=== PATIENT | female | born 1935 | race Caucasian/White ===

== ENCOUNTER 2016-09-18 10:56 | Emergency (ER) | payer OTHER, MEDICARE ==
[2016-09-18 11:07] VITALS: BMI 21.7
--- NOTE | 2016-09-18 11:28 | PDOC ---
[id number] is an 81 year old female with a past medical history of hypertension, hypercholesterolemia, who was referred to our emergency department by PMD Dr. Valerie Herrera with a complaint of elevated blood pressure. Patient one month ago had taken herself off her blood pressure medication( ramipril 5mg) because she was feeling better. Patient 4 days ago was at her metal drawer and states her systolic blood pressure was 140 systolic and was feeling well. Patient yesterday however started to experience some dizziness/ lightheadedness. Patient assessed her own blood pressure at a [employer] BP machine and found to have systolic in the 170s. Later that evening athome, she assessed her blood pressure again and found her s blood pressure to be 200's systolic. Demond followed up with her primary this morning and was noted be 210 systolic, subseqently referred to our ED. Here in the emergency department at triage, patients blood pressure was measured to be 204/77. Patient continues to endorse dizziness and mild nausea. She denies vomiting. Deneis chest pain, palpitations, back pain or shortness of breath. Denies cough. Denies abdominal pain. Denies headache, blurry vision. Denies numbness or tingling. Patient denies fever, chills or illness. PMD:Dr. Valerie Herrera( [phone]) <Iban Payan - Last Filed: 09/18/16 16:27> <Bradley Sweet - Last Filed: 09/21/16 19:29> - General Chief Complaint: Blood Pressure Problem Stated Complaint: HIGH BLOOD PRESSURE, PCP SENT Time Seen by Provider: 09/18/16 11:12 Past History <Iban Payan - Last Filed: 09/18/16 16:27> - Past Medical History HTN: Yes - Immunization History Immunization Up to Date: Yes - Psycho/Social/Smoking Cessation Hx Anxiety: No Suicidal Ideation: No Smoking History: Former smoker Have you smoked in the past 12 months: No Information on smoking cessation initiated: No Hx Alcohol Use: No Drug/Substance Use Hx: No Substance Use Type: None <Bradley Sweet - Last Filed: 09/21/16 19:29> - Past Medical History Allergies/Adverse Reactions: Allergies Allergy/AdvReac Type Severity Reaction Status Date / Time No Known Allergies Allergy Verified 09/18/16 11:03 Home Medications: Ambulatory Orders Ramipril 5 mg PO DAILY 09/18/16 Ramipril 5 mg PO DAILY #30 capsule 09/18/16 Review of Systems - Review of Systems Comments:: 09/18/16 11:55 CONSTITUTIONAL: No reported: Fever, Chills, Diaphoresis, Generalized Weakness, Malaise, Loss of Appetite HEENT: No reported: Rhinorrhea, Nasal Congestion, Throat Pain, Throat Swelling, Difficulty Swallowing, Mouth Swelling, Ear Pain, Eye Pain, Visual Changes CARDIOVASCULAR: No reported: Chest Pain, Syncope, Palpitations, Irregular Heart Rate, Lightheadedness, Peripheral Edema RESPIRATORY: No reported: Cough, Shortness of Breath, SOB with Exertion, Orthopnea, Wheezing , Stridor, Hemoptysis GASTROINTESTINAL: Reported: Nausea No reported: Abdominal pain, Abdominal Distension, Vomiting, Diarrhea, Constipation, Melena, Hematochezia GENITOURINARY: No reported: Dysuria, Frequency, Urgency, Hesitancy, Flank Pain, Genital Pain MUSCULOSKELETAL: No reported: Myalgia, Arthralgia, Joint Swelling, Back pain, Neck Pain SKIN: No reported: Rash, Itching, Pallor HEMEATOLOGIC/IMMUNOLOGIC: No reported: Easy Bleeding, Easy Bruising, Lymphadenopathy, Frequent infections ENDOCRINE: No reported: Unexplained Weight Gain, Unexplained Weight Loss, Heat Intolerance , Cold Intolerance NEUROLOGIC: Reports: Dizziness No reported: Headache, Focal Weakness, Paresthesias, Vertigo, Unsteady Gait, Seizure, Mental Status Changes, Incontinence PSYCHIATRIC: No reported: Anxiety, Depression <PayanIban - Last Filed: 09/18/16 16:27> *Physical Exam - Vital Signs Last Vital Signs Temp Pulse Resp BP Pulse Ox 98.3 F 54 L 20 204/77 98 09/18/16 11:29 09/18/16 11:03 09/18/16 11:29 09/18/16 11:03 09/18/16 11:29 - Physical Exam Comments: 09/18/16 11:55 GENERAL: The patient is awake, alert, and fully oriented, Nontoxic - in no acute distress. HEAD: Normocephalic, atraumatic. EYES: extraocular movements intact, sclera anicteric, conjunctiva clear. ENT: Normal voice, Moist mucous membranes. NECK: Normal range of motion, supple LUNGS: Breath sounds equal, clear to auscultation bilaterally. No wheezes, no rhonchi, no rales. HEART: Regular rate and rhythm, without murmur, rub or gallop. ABDOMEN: Soft, nontender, normoactive bowel sounds. No guarding, no rebound.No CVA tenderness EXTREMITIES: Normal range of motion, no edema. No clubbing or cyanosis. No cords , erythema, or tenderness. NEURO: Mental status: The patient is oriented x3. Cranial nerves: Cranial nerves II through XII are intact Motor: The upper extremities are 5 over 5 in all muscle groups. The lower extremities are 5 over 5 in all muscle groups. No pronator drift. Sensation: Sensation is intact to light touch throughout. Neg romberg Cerebellar: Homohz-wycetm-smps is normal in both upper extremities. Heel-knee- peterson is normal in both lower extremities. Reflexes: 2+ and symmetric in the upper and lower extremities. Gait: Normal. Heel and toe walking are normal. Tandem gait is normal. PSYCH: Normal mood, normal affect. SKIN: Warm, Dry, normal turgor, <Iban Payan - Last Filed: 09/18/16 16:27> - Vital Signs Last Vital Signs Temp Pulse Resp BP Pulse Ox 97.6 F 54 L 16 204/77 99 09/18/16 11:03 09/18/16 11:03 09/18/16 11:03 09/18/16 11:03 09/18/16 11:03 <Bradley Sweet - Last Filed: 09/21/16 19:29> Heart Score/ECG Review - ECG Impressions Comment:: 09/18/16 12:31 Twelve-lead EKG was performed and reviewed by me. There is normal sinus rhythm with a rate of 49 The axis is normal. The intervals are normal. There is normal R wave progression There are no ST or T wave abnormalities. Impression: Sinus bradycardia <Bradley Sweet - Last Filed: 09/21/16 19:29> ED Treatment Course - LABORATORY CBC & Chemistry Diagram: 09/18/16 11:33 09/18/16 13:25 - Medications Given in the ED: ED Medications Discontinued Medications Generic Name Dose Route Start Last Admin Trade Name Freq PRN Reason Stop Dose Admin Labetalol HCl 10 mg 09/18/16 11:31 09/18/16 11:35 Normodyne Injection - IVPUSH 09/18/16 11:32 10 mg ONCE ONE Administration <Iban Payan - Last Filed: 09/18/16 16:27> - LABORATORY CBC & Chemistry Diagram: 09/18/16 11:33 09/18/16 13:25 <Bradley Sweet - Last Filed: 09/21/16 19:29> Medical Decision Making - Medical Decision Making 09/18/16 11:41 81y F hx of htn, hl, presents with htn, pt states that she felt alittle nauseus and lightheaded this morning, and went ot her pmd and noted her BP was elevated to 210 systolic after being off her meds for the past month. pt currently asymptomatic. exam including neuro exam is unremarakble will ck basic labs to r/o anemia, metabolic dernagement, occult infection ekg to screen for arrythmia will give pt 10mg labetalol and will confirm her bp meds and restart her on the meds. A portion of this note was documented by scribe services under my direction. I have reviewed the details of the note, within reason, and agree with the documentation with the following case summary and management plan written by me 09/18/16 15:40 labs unremarkable pts bp improved will dc the patient with pmd fu will have pt continue taking her ramapril will have pt fu with dr herrera tomorrow. I discussed the physical exam findings, ancillary test results and final diagnoses with the patient. I answered all of the patient's questions. The patient was satisfied with the care received and felt comfortable with the discharge plan and treatment plan. The patient will call their primary care physician within 24 hours to arrange follow-up and will return to the Emergency Department with any new, persistent or worsening symptoms. <Bradley Sweet - Last Filed: 09/21/16 19:29> *DC/Admit/Observation/Transfer - Attestations Scribe Attestion: 09/18/16 11:55 Documentation prepared by Iban Payan, acting as manager medical affairs for Bradley Sweet MD <Iban Payan - Last Filed: 09/18/16 16:27> - Discharge Dispostion Admit: No <Bradley Sweet - Last Filed: 09/21/16 19:29> Diagnosis at time of Disposition: Hypertension Qualifiers: Hypertension type: essential hypertension Qualified Code(s): I10 - Essential ( primary) hypertension - Discharge Dispostion Disposition: HOME Condition at time of disposition: Improved - Prescriptions Prescriptions: Ramipril 5 mg PO DAILY #30 capsule - Referrals Referrals: Valerie Herrera MD [Primary Care Provider] - - Patient Instructions Printed Discharge Instructions: DI for High Blood Pressure Additional Instructions: Return to the emergency department immediately with ANY new, persistent or worsening symptoms. Continue taking your Ramapril as prescribed You MUST call and follow up with your doctor tomorrow for further evaluation of your symptoms. Results were discussed with you. Please make sure your doctor reviews the results of your emergency evaluation.
[2016-09-18 11:31] VITALS: TEMP 98.3
[2016-09-18] MEDS ORDERED: LABETALOL HCL 5 MG/1 ML (100MG/20 ML VIAL) IVPUSH ONE (11:31)
[2016-09-18] MEDS ORDERED: LABETALOL HCL 5 MG/1 ML (200MG/40ML VIAL) IVPB ONE (11:37)
[2016-09-18 11:47] LABS: BASOPHIL 1.6 % (0-2.0); EOSINOPHIL 1.6 % (0-4.5); MCH 29.9 pg (25.7-33.7); MCHC 33.4 g/dl (32.0-36.0); MEAN CELL VOLUME 89.5 fl (80-96); MEAN PLT VOLUME 9.7 fl (7.5-11.1); NEUTROPHILS 49.8 % (42.8-82.8); PLATELET COUNT 270 K/MM3 (134-434); RDW 13.1 % (11.6-15.6); WHITE BLOOD COUNT 7.5 K/mm3 (4.0-10.0)
[2016-09-18 12:16] LABS: URINE APPEARANCE CLEAR; URINE BILIRUBIN NEGATIVE (NEGATIVE); URINE BLOOD NEGATIVE (NEGATIVE); URINE COLOR COLORLESS; URINE GLUCOSE (UA) NEGATIVE (NEGATIVE); URINE KETONE NEGATIVE (NEGATIVE); URINE LEUK ESTERASE NEGATIVE (NEGATIVE); URINE NITRITE NEGATIVE (NEGATIVE); URINE PROTEIN NEGATIVE (NEGATIVE); URINE UROBILINOGEN NEGATIVE E.U./dl (0.2-1.0)
[2016-09-18 12:19] LABS: INR 0.98 (0.82-1.09); PROTHROMBIN TIME (PATIENT) 10.8 SEC (9.98-11.88)
[2016-09-18 13:42] LABS: ANION GAP 12 (8-16); CALCIUM 9.1 mg/dL (8.5-10.1); CO2 23 mmol/L (21-32); CREATININE 0.7 mg/dL (0.55-1.02); GLUCOSE,RANDOM 104 mg/dL (74-106); SGOT/AST 17 U/L (15-37); SGPT/ALT 22 U/L (12-78)
[2016-09-18 13:44] LABS: ALK PHOS 69 U/L (45-117); BILIRUBIN,TOTAL 0.6 mg/dL (0.2-1.0)
[2016-09-18 15:44] LABS: TROPONIN I < 0.02 ng/ml (0.00-0.05)
[2016-09-18 16:25] VITALS: BP 166/78; PULSE 59
--- NOTE | 2016-09-19 13:57 | EKG ---
Test Reason : Blood Pressure : / mmHG Vent. Rate : 049 BPM Atrial Rate : 049 BPM P-R Int : 156 ms QRS Dur : 078 ms QT Int : 444 ms P-R-T Axes : 070 -05 042 degrees QTc Int : 401 ms SINUS BRADYCARDIA OTHERWISE NORMAL ECG NO PREVIOUS ECGS AVAILABLE Confirmed by AVELINO JAMES, MARANDA ([id number]) on 09/19/2016 1:56:46 PM Referred By: Confirmed By:MARANDA YOU MD
== END 2016-09-18 16:24 | disposition home or self-care (01) ==
LOC: JER 10:56
DX: I10 Essential (primary) hypertension (principal); Z91.14 Patient's other noncompliance with medication regimen
CPT/HCPCS: 36415; 80053; 81003; 82550; 84484; 85025; 85610; 93005; 93010; 99283-25

== ENCOUNTER 2017-02-10 12:11 | Emergency (ER) | payer OTHER, MEDICARE ==
[2017-02-10 12:18] VITALS: TEMP 99.3; BMI 22.6
--- NOTE | 2017-02-10 13:10 | PDOC ---
History of Present Illness - General Chief Complaint: Blood Pressure Problem Stated Complaint: BP PROBLEM Time Seen by Provider: 02/10/17 12:30 History Source: Patient Exam Limitations: No Limitations - History of Present Illness Initial Comments: 02/10/17 13:24 81y F hx of htn, hl, who presents for evaluation of hypertension. Pt stats that last night, she was feeling a little lightheaded and had a mild headache last night approx 6pm. she checked her BP and it was 180. She took a ramapril 10mg, at midnight she checked her BP again and SBP was 200s. she took another ramapril 10mg. This morning her BP was 180s and she took another ramapril. PT states she feels better currently, denies any headache, dizzines,s n/v, palpitations, cp, sob, diaphoresis, abd pain, back pain, numnes/tingling/ weakness. no recent travel PMD:L Dr villatoro pt denies recreational drug use Past History - Past Medical History Allergies/Adverse Reactions: Allergies Allergy/AdvReac Type Severity Reaction Status Date / Time No Known Allergies Allergy Verified 02/10/17 12:18 Home Medications: Ambulatory Orders Ramipril 10 mg PO DAILY 02/10/17 Rosuvastatin Calcium 10 mg PO DAILY 02/10/17 HTN: Yes Hypercholesterolemia: Yes - Immunization History Immunization Up to Date: Yes - Psycho/Social/Smoking Cessation Hx Anxiety: No Suicidal Ideation: No Smoking History: Never smoked Have you smoked in the past 12 months: No Information on smoking cessation initiated: No Hx Alcohol Use: No Drug/Substance Use Hx: No Substance Use Type: None Review of Systems - Review of Systems Able to Perform ROS?: Yes Comments:: 02/10/17 14:25 Constitutional - no reported Fever, Chills, HEENT: no reported vision changes, sore throat Respiratory: no reported cough, sob, hemoptysis Cardiac: no reported chest pain, palpitations, light headedness, leg swelling Abd/GI: no reported abd pain, nausea, vomiting, blood per rectum, melena, diarrhea : no reported dysuria, frequency, discharge Musculskelatal - no reported back pain, joint swelling skin - no reported bruising, erythema, rash neurological: +dizziness, head pressure no reported headache, numbness, focal weakness, tingling, ataxia, hematologic: no reported anemia, easy bruising, easy bleeding *Physical Exam - Vital Signs Last Vital Signs Temp Pulse Resp BP Pulse Ox 99.3 F 74 18 159/77 98 02/10/17 12:13 02/10/17 12:13 02/10/17 12:13 02/10/17 12:13 02/10/17 12:13 - Physical Exam Comments: 02/10/17 14:26 GENERAL: The patient is awake, alert, and fully oriented, Nontoxic - in no acute distress. HEAD: Normocephalic, atraumatic. EYES: extraocular movements intact, sclera anicteric, conjunctiva clear. ENT: Normal voice, Moist mucous membranes. NECK: Normal range of motion, supple LUNGS: Breath sounds equal, clear to auscultation bilaterally. No wheezes, no rhonchi, no rales. HEART: Regular rate and rhythm, normal S1 and S2 without murmur, rub or gallop. ABDOMEN: Soft, nontender, normoactive bowel sounds. No guarding, no rebound. . No CVA tenderness EXTREMITIES: Normal range of motion, no edema. No clubbing or cyanosis. No cords, erythema, or tenderness. NEUROLOGICAL: No facial assymetry, Normal speech, PSYCH: Normal mood, normal affect. SKIN: Warm, Dry, normal turgor, Heart Score/ECG Review - ECG Impressions Comment:: 02/10/17 14:31 Twelve-lead EKG was performed and reviewed by me. There is normal sinus rhythm with a rate of 49 The axis is normal. The intervals are normal. There is normal R wave progression There are no ST or T wave abnormalities. Impression: Sinus bradycardia ED Treatment Course - LABORATORY CBC & Chemistry Diagram: 02/10/17 13:00 02/10/17 13:00 Medical Decision Making - Medical Decision Making 02/10/17 14:29 hypertension, mild head pressure/dizzinerss last night but improved bp improved relative to last night, multiple doses of lisinopril (30mg over ~12 hrs) will ck labs will reassess 02/10/17 15:23 Case discussed with poison control, if pts last dose was >12 hrs, would not do anything differently as pts vitals ar normal pt noted mildly hyponatremic will have pt fu with PMD for this to have it rechecked return precautions were discussed I discussed the physical exam findings, ancillary test results and final diagnoses with the patient. I answered all of the patient's questions. The patient was satisfied with the care received and felt comfortable with the discharge plan and treatment plan. The patient will call their primary care physician within 24 hours to arrange follow-up and will return to the Emergency Department with any new, persistent or worsening symptoms. *DC/Admit/Observation/Transfer Diagnosis at time of Disposition: Hyponatremia Hypertension Qualifiers: Hypertension type: unspecified Qualified Code(s): I10 - Essential (primary) hypertension Drug overdose Qualifiers: Encounter type: initial encounter Injury intent: accidental or unintentional Qualified Code(s): T50.901A - Poisoning by unspecified drugs, medicaments and biological substances, accidental (unintentional), initial encounter - Discharge Dispostion Disposition: HOME Condition at time of disposition: Improved Admit: No - Referrals Referrals: Valerie Herrera MD [Primary Care Provider] - - Patient Instructions Printed Discharge Instructions: DI for High Blood Pressure, How to Monitor Your Blood Pressure at Home Additional Instructions: Return to the emergency department immediately with ANY new, persistent or worsening symptoms. Your sodium was slightly low at 128. Please follow up with your primary care doctor to have this rechecked. You MUST call and follow up with your doctor tomorrow for further evaluation of your symptoms. Results were discussed with you. Please make sure your doctor reviews the results of your emergency evaluation. Print Language: MALAWIAN
[2017-02-10 13:12] LABS: BASOPHIL 1.4 % (0-2.0); EOSINOPHIL 0.6 % (0-4.5); MCH 30.1 pg (25.7-33.7); MCHC 34.1 g/dl (32.0-36.0); MEAN CELL VOLUME 88.3 fl (80-96); MEAN PLT VOLUME 8.1 fl (7.5-11.1); NEUTROPHILS 68.8 % (42.8-82.8); PLATELET COUNT 228 K/MM3 (134-434); RDW 12.5 % (11.6-15.6); WHITE BLOOD COUNT 7.2 K/mm3 (4.0-10.0)
[2017-02-10 13:45] LABS: ALBUMIN 3.7 g/dl (3.4-5.0); ALK PHOS 55 U/L (45-117); ANION GAP 9 (8-16); BILIRUBIN,TOTAL 0.6 mg/dL (0.2-1.0); CO2 26 mmol/L (21-32); CREATININE 0.8 mg/dL (0.55-1.02); GLUCOSE,RANDOM 108 mg/dL (74-106); SGOT/AST 34 U/L (15-37); SGPT/ALT 30 U/L (12-78); TOT PROT 6.6 g/dl (6.4-8.2)
[2017-02-10 13:46] LABS: TROPONIN I < 0.02 ng/ml (0.00-0.05)
[2017-02-10 14:47] LABS: URINE APPEARANCE CLEAR; URINE BILIRUBIN NEGATIVE (NEGATIVE); URINE BLOOD NEGATIVE (NEGATIVE); URINE COLOR STRAW; URINE GLUCOSE (UA) NEGATIVE (NEGATIVE); URINE KETONE TRACE (NEGATIVE); URINE LEUK ESTERASE NEGATIVE (NEGATIVE); URINE NITRITE NEGATIVE (NEGATIVE); URINE PROTEIN NEGATIVE (NEGATIVE); URINE UROBILINOGEN NEGATIVE mg/dL (0.2-1.0)
[2017-02-10 16:06] VITALS: BP 150/68; PULSE 65
--- NOTE | 2017-02-11 09:14 | EKG ---
Test Reason : Blood Pressure : / mmHG Vent. Rate : 055 BPM Atrial Rate : 055 BPM P-R Int : 152 ms QRS Dur : 082 ms QT Int : 452 ms P-R-T Axes : 069 -12 062 degrees QTc Int : 432 ms SINUS BRADYCARDIA OTHERWISE NORMAL ECG WHEN COMPARED WITH ECG OF 18-SEP-2016 11:53, NO SIGNIFICANT CHANGE WAS FOUND Confirmed by LORENE COON MD ([id number]) on 02/11/2017 9:13:32 AM Referred By: Confirmed By:LORENE COON MD
== END 2017-02-10 16:06 | disposition home or self-care (01) ==
LOC: JER 12:11
DX: I10 Essential (primary) hypertension (principal); E87.1 Hypo-osmolality and hyponatremia; T46.4X1A Poisoning by angiotensin-converting-enzyme inhibitors, accidental (unintentional), initial encounter; Y92.018 Other place in single-family (private) house as the place of occurrence of the external cause
CPT/HCPCS: 36415; 80053; 81003; 82550; 82553; 84484; 85025; 93005; 93010; 99283-25

== ENCOUNTER 2017-04-19 18:35 | Emergency (ER) | payer OTHER, MEDICARE ==
[2017-04-19 18:44] VITALS: TEMP 98.6; BMI 22.6
--- NOTE | 2017-04-19 19:53 | PDOC ---
History of Present Illness - General Chief Complaint: Blood Pressure Problem Stated Complaint: BLOOD PRESSURE Time Seen by Provider: 04/19/17 19:08 History Source: Patient Exam Limitations: No Limitations - History of Present Illness Initial Comments: 04/19/17 20:02 81y F htn, hl, presents with 'hypertension' pt had tooth extraction yetserday, has been having severe pain in her mouth. She was told she can take a motrin. She checked her BP at home and saw it was 185 so she came to [facility] evaluation. The pt endorses feeling very shaky when she saw her bp was at 185 sbp - but states she currently feels much better. Pt also notes that her bp otherwise is very well controlled in the 125 and 135 range normally. The pt denies any headache, fever/chills, chest pain, sob, n/v, palpitations, neck pain, back pain. pt has been compliant with her meds otherwise. PMD:Shadi villatoro pt denies recreational drug use Past History - Past Medical History Allergies/Adverse Reactions: Allergies Allergy/AdvReac Type Severity Reaction Status Date / Time No Known Allergies Allergy Verified 04/19/17 18:41 Home Medications: Ambulatory Orders Ramipril 10 mg PO DAILY 02/10/17 Amlodipine Besylate [Norvasc -] 2.5 mg PO DAILY 04/19/17 Ezetimibe 10 mg PO HS 04/19/17 Ibuprofen [Advil -] 200 mg PO QID PRN 04/19/17 HTN: Yes Hypercholesterolemia: Yes - Immunization History Immunization Up to Date: Yes - Suicide/Smoking/Psychosocial Hx Smoking History: Never smoked Have you smoked in the past 12 months: No Information on smoking cessation initiated: No Hx Alcohol Use: No Drug/Substance Use Hx: No Substance Use Type: None Review of Systems - Review of Systems Able to Perform ROS?: Yes Comments:: 04/19/17 20:26 Constitutional - +feeling shaky no reported Fever, Chills, HEENT: no reported vision changes, sore throat Respiratory: no reported cough, sob, hemoptysis Cardiac: no reported chest pain, palpitations, light headedness, leg swelling Abd/GI: no reported abd pain, nausea, vomiting, blood per rectum, melena, diarrhea : no reported dysuria, frequency, discharge Musculskelatal - no reported back pain, joint swelling skin - no reported bruising, erythema, rash neurological: no reported headache, numbness, focal weakness, tingling, ataxia, hematologic: no reported anemia, easy bruising, easy bleeding *Physical Exam - Vital Signs Last Vital Signs Temp Pulse Resp BP Pulse Ox 98.6 F 72 19 185/89 97 04/19/17 18:38 04/19/17 18:38 04/19/17 18:38 04/19/17 18:38 04/19/17 18:38 - Physical Exam Comments: 04/19/17 20:27 GENERAL: The patient is awake, alert, and fully oriented, Nontoxic - in no acute distress. HEAD: Normocephalic, atraumatic. EYES: extraocular movements intact, sclera anicteric, conjunctiva clear. ENT: +mlid swelling in L cheek, no erythema/induration/fluctuance, Normal voice , Moist mucous membranes. posterior pharynx clear NECK: Normal range of motion, supple LUNGS: Breath sounds equal, clear to auscultation bilaterally. No wheezes, no rhonchi, no rales. HEART: Regular rate and rhythm, normal S1 and S2 without murmur, rub or gallop. ABDOMEN: Soft, nontender, normoactive bowel sounds. No guarding, no rebound. . No CVA tenderness EXTREMITIES: Normal range of motion, no edema. No clubbing or cyanosis. No cords, erythema, or tenderness. NEUROLOGICAL: No facial assymetry, Normal speech, PSYCH: Normal mood, normal affect. SKIN: Warm, Dry, normal turgor, Medical Decision Making - Medical Decision Making 04/19/17 20:29 suspect her bp elevated due to her pain will give her tylenol repeat bp improved (165/98) will dc with pmd fu return precuautions were discussed I discussed the physical exam findings, ancillary test results and final diagnoses with the patient. I answered all of the patient's questions. The patient was satisfied with the care received and felt comfortable with the discharge plan and treatment plan. The patient will call their primary care physician within 24 hours to arrange follow-up and will return to the Emergency Department with any new, persistent or worsening symptoms. *DC/Admit/Observation/Transfer Diagnosis at time of Disposition: Hypertension Qualifiers: Hypertension type: essential hypertension Qualified Code(s): I10 - Essential ( primary) hypertension - Discharge Dispostion Disposition: HOME Condition at time of disposition: Improved Admit: No - Referrals Referrals: Valerie Herrera MD [Non Staff, Medical] - - Patient Instructions Printed Discharge Instructions: DI for High Blood Pressure Additional Instructions: Return to the emergency department immediately with ANY new, persistent or worsening symptoms. You MUST call and follow up with your doctor tomorrow for further evaluation of your symptoms. Results were discussed with you. Please make sure your doctor reviews the results of your emergency evaluation. If you had any xrays during your visit, it was read preliminarily by myself, a Radiologist will review it and if there are any additional findings we will call you.
[2017-04-19] MEDS ORDERED: ACETAMINOPHEN 325 MG TABLET (FP) PO ONE (20:16)
[2017-04-19] MEDS ORDERED: ACETAMINOPHEN 325 MG TABLET (FP) ONE (20:26)
[2017-04-19 20:29] VITALS: BP 162/100; PULSE 78
== END 2017-04-19 21:09 | disposition home or self-care (01) ==
LOC: JER 18:35
DX: I10 Essential (primary) hypertension (principal); E78.00 Pure hypercholesterolemia, unspecified
CPT/HCPCS: 99281-25

== ENCOUNTER 2017-04-26 21:20 | Observation (INO) | payer OTHER, MEDICARE ==
[2017-04-26] MEDS ORDERED: LABETALOL HCL 5 MG/1 ML (100MG/20 ML VIAL) IVPUSH ONE (22:08)
--- NOTE | 2017-04-26 22:28 | PDOC ---
History of Present Illness - General Chief Complaint: Blood Pressure Problem Stated Complaint: BLOOD PROBLEMS Time Seen by Provider: 04/26/17 21:48 History Source: Patient Exam Limitations: No Limitations - History of Present Illness Initial Comments: 04/26/17 22:23 Patient is an 81F with history of HTN here today complaining of high blood pressure and headache. She says that the headache onset suddenly at 6pm today. She took her blood pressure on her machine and it showed a systolic BP of 214. The headache is located in her forehead, and described as a pressure. Denies loss of consciousness. She has associated light-sensitivity. She states that she has not missed any of her blood pressure medications. She endorses associated nausea. She denies fevers, chills and vomiting. She denies chest pain , shortness of breath, and difficulties with urination. Past History - Past Medical History Allergies/Adverse Reactions: Allergies Allergy/AdvReac Type Severity Reaction Status Date / Time No Known Allergies Allergy Verified 04/26/17 21:27 Home Medications: Ambulatory Orders Ramipril 5 mg PO DAILY 02/10/17 Amlodipine Besylate [Norvasc -] 2.5 mg PO DAILY 04/19/17 Ezetimibe 10 mg PO HS 04/19/17 HTN: Yes Hypercholesterolemia: Yes - Immunization History Immunization Up to Date: Yes - Suicide/Smoking/Psychosocial Hx Smoking History: Never smoked Have you smoked in the past 12 months: No Information on smoking cessation initiated: No Hx Alcohol Use: No Drug/Substance Use Hx: No Substance Use Type: None Review of Systems - Review of Systems Comments:: 04/26/17 22:30 GENERAL/CONSTITUTIONAL: No fever or chills. No weakness. HEAD, EYES, EARS, NOSE AND THROAT: Positive for light sensitivity. No sore throat. CARDIOVASCULAR: No chest pain or shortness of breath RESPIRATORY: No cough, wheezing, or hemoptysis. GASTROINTESTINAL: Positive for nausea. Negative for vomiting, diarrhea or constipation. GENITOURINARY: No dysuria, frequency, or change in urination. MUSCULOSKELETAL: No joint or muscle swelling or pain. No neck or back pain. SKIN: No rash NEUROLOGIC: Positive for headache. Negative for vertigo, loss of consciousness, or change in strength/sensation. ENDOCRINE: No increased thirst. No abnormal weight change HEMATOLOGIC/LYMPHATIC: No anemia, easy bleeding, or history of blood clots. ALLERGIC/IMMUNOLOGIC: No hives or skin allergy. *Physical Exam - Vital Signs Last Vital Signs Temp Pulse Resp BP Pulse Ox 98.0 F 75 18 200/92 97 04/26/17 21:23 04/26/17 21:23 04/26/17 21:23 04/26/17 21:23 04/26/17 21:23 ED Treatment Course - LABORATORY CBC & Chemistry Diagram: 04/26/17 22:40 04/26/17 22:40 - RADIOLOGY Radiology Studies Ordered: Category Date Time Status HEAD CT WITHOUT CONTRAST [CT] Stat CT Scan 04/26/17 22:07 Ordered CHEST X-RAY PORTABLE* [RAD] Stat Radiology 04/26/17 22:05 Ordered Medical Decision Making - Medical Decision Making 04/26/17 22:32 Patient is an 81F with history of HTN here today with a sudden onset of headache. Repeat blood pressure systolic of 200. Sent to CT scanner. Will evaluate further with labs, ekg, cxr, and ua. Will treat with 10mg labetalol. Will likely do LP if CT is negative. 04/27/17 00:10 CT shows no acute intracranial processes. 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 Laboratory Tests 04/26/17 04/26/17 04/26/17 22:40 22:40 22:40 WBC 7.0 Hgb 13.1 Plt Count 324 D INR 0.98 Sodium 126 L Chloride 91 L Troponin I < 0.02 CBC normal. INR normal. CMP shows sodium of 126. Trop negative. EKG shows sinus bradycardia. No st elevations/depressions, normal axis, no t- wave abnormalities. 04/27/17 00:17 Prior sodium levels reviewed: Laboratory Tests 09/18/16 02/10/17 04/26/17 13:25 13:00 22:40 Sodium 133 L 128 L 126 L Hyponatremia is chronic, mild to moderate symptoms. 04/27/17 00:59 Discussed with medical lab assistant. Admitted to obs. *DC/Admit/Observation/Transfer Diagnosis at time of Disposition: Hyponatremia - Discharge Dispostion Condition at time of disposition: Stable Admit: Yes - Referrals Referrals: Adam Austin MD [Primary Care Provider] -
[2017-04-26 22:53] LABS: BASOPHIL 2.6 % (0-2.0); EOSINOPHIL 2.5 % (0-4.5); MCH 30.5 pg (25.7-33.7); MCHC 34.4 g/dl (32.0-36.0); MEAN CELL VOLUME 88.9 fl (80-96); NEUTROPHILS 47.1 % (42.8-82.8); PLATELET COUNT 324 K/MM3 (134-434); RDW 12.6 % (11.6-15.6)
[2017-04-26 23:04] LABS: INR 0.98 (0.82-1.09); PROTHROMBIN TIME (PATIENT) 10.8 SEC (9.98-11.88)
[2017-04-26 23:15] LABS: ALBUMIN 3.8 g/dl (3.4-5.0); ANION GAP 10 (8-16); BILIRUBIN,TOTAL 0.3 mg/dL (0.2-1.0); CALCIUM 8.8 mg/dL (8.5-10.1); CO2 25 mmol/L (21-32); CREATININE 0.6 mg/dL (0.55-1.02); GLUCOSE,RANDOM 105 mg/dL (74-106); SGOT/AST 27 U/L (15-37); SGPT/ALT 28 U/L (12-78); TOT PROT 7.2 g/dl (6.4-8.2)
[2017-04-26 23:18] LABS: ALK PHOS 75 U/L (45-117); CPK 129 IU/L (26-192); TROPONIN I < 0.02 ng/ml (0.00-0.05)
[2017-04-27 00:25] LABS: URINE APPEARANCE CLEAR; URINE BILIRUBIN NEGATIVE (NEGATIVE); URINE BLOOD NEGATIVE (NEGATIVE); URINE COLOR COLORLESS; URINE GLUCOSE (UA) NEGATIVE (NEGATIVE); URINE KETONE NEGATIVE (NEGATIVE); URINE NITRITE NEGATIVE (NEGATIVE); URINE PROTEIN NEGATIVE (NEGATIVE); URINE UROBILINOGEN NEGATIVE mg/dL (0.2-1.0)
[2017-04-27 00:33] LABS: CHOLESTEROL 178 mg/dL (50-200)
--- NOTE | 2017-04-27 02:13 | PDOC ---
Attending Attestation - Resident Resident Name: Zain Arreaga - ED Attending Attestation I have performed the following: I have examined & evaluated the patient, The case was reviewed & discussed with the resident, I agree w/resident's findings & plan, Exceptions are as noted - HPI HPI: 04/27/17 02:08 81 yo F with h/o htn, HLD , here wtih c/o elevated blood pressure and headache. started earlier today this evening. no n/v no change to vision. no chest pain no sob. took her meds, at home her bp was elevated 220 sbp. o - Physicial Exam PE: 04/27/17 02:09 awake alert lungs clear heart rrr no mrg. abd soft nt nd. ext wwp no edema. skin warm and dry. nuero alert oriented. speech clear CN intact - Medical Decision Making 04/27/17 02:10 plan : differential anemia, electrolyte abnormality, htn emergency . plan ct head ekg cxr labs reassess. bp management with labetalol 04/27/17 02:11 pt feels better. labs noted to be hyponatremic, pt states she has had in the past when seen in the ED, but when it was rechecked in primary office was normal. reports drinking water. can't rembmer name recent antibiotic she was on for tooth extraction.
--- NOTE | 2017-04-27 02:27 | HP ---
<Wade Mendez - Last Filed: 04/29/17 07:00> CHIEF COMPLAINT: headache and elevated blood pressure PCP: Dr. Laura harding HISTORY OF PRESENT ILLNESS: The patient is an 81 yo f w/ PMH of HTN, HLD who presents to the ED c/o headache and elevated blood pressure. Patient is a poor historian. She was in her usual state of health until 6pm this evening when she began to feel a sudden onset of pressure in her head. The pressure feeling was centered around the frontal area, nonradiating and exacerbated by light. This pressure was associated with burry vision and dizziness. Symptoms persisted until 9pm at which time she took her blood pressure on a home BP cuff, noting that it read a systolic pressure in the 200's. This event Prompted her to come to the ED. She had several recent ER visits for blood pressure. ER course was notable for: (1) BP 200/92 (2) labetolol 10mg IV (3) CT head negative for acute pathology Recent Travel: PAST MEDICAL HISTORY: -HTN, HLD PAST SURGICAL HISTORY: -tooth extraction on 04/19/2017 Social History: Smoking: denies Alcohol: denies Drugs: denies Family History: sister: HLD Father: of heart related problems mother: of lung cancer Allergies No Known Allergies Allergy (Verified 04/26/17 21:27) HOME MEDICATIONS: Home Medications Medication Instructions Recorded Ramipril 5 mg PO DAILY 02/10/17 Amlodipine Besylate [Norvasc -] 2.5 mg PO DAILY 04/19/17 Ezetimibe 10 mg PO HS 04/19/17 REVIEW OF SYSTEMS CONSTITUTIONAL: Absent: fever, chills, diaphoresis, generalized weakness, malaise, loss of appetite, weight change HEENT: Absent: rhinorrhea, nasal congestion, throat pain, throat swelling, difficulty swallowing, mouth swelling, ear pain, eye pain CARDIOVASCULAR: Absent: chest pain, syncope, palpitations, irregular heart rate, lightheadedness , peripheral edema RESPIRATORY: Absent: cough, shortness of breath, dyspnea with exertion, orthopnea, wheezing, stridor, hemoptysis GASTROINTESTINAL: Absent: abdominal pain, abdominal distension, nausea, vomiting, diarrhea, constipation, melena, hematochezia GENITOURINARY: Absent: dysuria, frequency, urgency, hesitancy, hematuria, flank pain, genital pain MUSCULOSKELETAL: Absent: myalgia, arthralgia, joint swelling, back pain, neck pain SKIN: Absent: rash, itching, pallor HEMATOLOGIC/IMMUNOLOGIC: Absent: easy bleeding, easy bruising, lymphadenopathy, frequent infections ENDOCRINE: Absent: unexplained weight gain, unexplained weight loss, heat intolerance, cold intolerance NEUROLOGIC: Absent: focal weakness or paresthesias, unsteady gait, seizure, mental status changes, bladder or bowel incontinence PSYCHIATRIC: Absent: anxiety, depression, suicidal or homicidal ideation, hallucinations. PHYSICAL EXAMINATION Vital Signs - 24 hr 04/27/17 01:49 Temperature 98.6 F Pulse Rate [ 74 Apical] Respiratory 16 Rate Blood Pressure 148/89 [Right Arm] O2 Sat by Pulse 96 Oximetry (%) GENERAL: Awake, alert, and fully oriented, in no acute distress. HEAD: Normal with no signs of trauma. EYES: Pupils equal, round and reactive to light, extraocular movements intact, sclera anicteric, conjunctiva clear. No lid lag. NECK: Normal range of motion, supple without lymphadenopathy, JVD, or masses. LUNGS: Breath sounds equal, clear to auscultation bilaterally. No wheezes, and no crackles. No accessory muscle use. HEART: Regular rate and rhythm, normal S1 and S2 without murmur, rub or gallop. ABDOMEN: Soft, nontender, not distended, normoactive bowel sounds, no guarding, no rebound, no masses. No hepatomegaly or splenomegaly. MUSCULOSKELETAL: Normal range of motion at all joints. No bony deformities or tenderness. No CVA tenderness. UPPER EXTREMITIES: 2+ pulses, warm, well-perfused. No cyanosis. No clubbing. No peripheral edema. LOWER EXTREMITIES: 2+ pulses, warm, well-perfused. No calf tenderness. Trace edema at the ankles. Varicose veins over both lower extremities. NEUROLOGICAL: Cranial nerves II-X intact. Normal speech. Normal gait. PSYCHIATRIC: Cooperative. Good eye contact. Appropriate mood and affect. SKIN: Warm, dry, normal turgor, no rashes or lesions noted, normal capillary refill. ASSESSMENT/PLAN: The patient is a 81 yo f w/ PMH HTN, HLD who comes into the ED c/o headache and elevated BP at home. Patient is admitted for observation for hypertensive urgency. 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 Ko, in AM to confirm abx type and dose # HLD -TAG 164 -total cholesterol 178 -c/w home ezetemibe 10mg PO HS #FEN -no fluids indicated at this time -monitor lytes -sodium controlled #prophylaxsis -SCDs -no GI prophy indicated #dispo -admitted for observation Visit type - Emergency Visit Emergency Visit: Yes ED Registration Date: 04/27/17 Care time: The patient presented to the Emergency Department on the above date and was hospitalized for further evaluation of their emergent condition. - New Patient This patient is new to me today: Yes Date on this admission: 04/29/17 - Critical Care Critical Care patient: No <LaurieKim luna - Last Filed: 05/01/17 13:08> CHIEF COMPLAINT: PCP: HISTORY OF PRESENT ILLNESS: ER course was notable for: (1) (2) (3) Recent Travel: PAST MEDICAL HISTORY: PAST SURGICAL HISTORY: Social History: Smoking: Alcohol: Drugs: Family History: Allergies No Known Allergies Allergy (Verified 04/26/17 21:27) HOME MEDICATIONS: Home Medications Medication Instructions Recorded Ramipril 5 mg PO BID 02/10/17 Ezetimibe 10 mg PO HS 04/19/17 Acetaminophen [Tylenol .Regular 325 mg PO Q6H PRN #0 tablet 04/29/17 Strength -] Amlodipine Besylate [Norvasc -] 5 mg PO DAILY #30 tablet 04/29/17 Sennosides [Senna -] 2 tab PO HS PRN #60 tablet 04/29/17 REVIEW OF SYSTEMS CONSTITUTIONAL: Absent: fever, chills, diaphoresis, generalized weakness, malaise, loss of appetite, weight change HEENT: Absent: rhinorrhea, nasal congestion, throat pain, throat swelling, difficulty swallowing, mouth swelling, ear pain, eye pain, visual changes CARDIOVASCULAR: Absent: chest pain, syncope, palpitations, irregular heart rate, lightheadedness , peripheral edema RESPIRATORY: Absent: cough, shortness of breath, dyspnea with exertion, orthopnea, wheezing, stridor, hemoptysis GASTROINTESTINAL: Absent: abdominal pain, abdominal distension, nausea, vomiting, diarrhea, constipation, melena, hematochezia GENITOURINARY: Absent: dysuria, frequency, urgency, hesitancy, hematuria, flank pain, genital pain MUSCULOSKELETAL: Absent: myalgia, arthralgia, joint swelling, back pain, neck pain SKIN: Absent: rash, itching, pallor HEMATOLOGIC/IMMUNOLOGIC: Absent: easy bleeding, easy bruising, lymphadenopathy, frequent infections ENDOCRINE: Absent: unexplained weight gain, unexplained weight loss, heat intolerance, cold intolerance NEUROLOGIC: Absent: headache, focal weakness or paresthesias, dizziness, unsteady gait, seizure, mental status changes, bladder or bowel incontinence PSYCHIATRIC: Absent: anxiety, depression, suicidal or homicidal ideation, hallucinations. PHYSICAL EXAMINATION GENERAL: Awake, alert, and fully oriented, in no acute distress. HEAD: Normal with no signs of trauma. EYES: Pupils equal, round and reactive to light, extraocular movements intact, sclera anicteric, conjunctiva clear. No lid lag. EARS, NOSE, THROAT: Ears normal, nares patent, oropharynx clear without exudates. Moist mucous membranes. NECK: Normal range of motion, supple without lymphadenopathy, JVD, or masses. LUNGS: Breath sounds equal, clear to auscultation bilaterally. No wheezes, and no crackles. No accessory muscle use. HEART: Regular rate and rhythm, normal S1 and S2 without murmur, rub or gallop. ABDOMEN: Soft, nontender, not distended, normoactive bowel sounds, no guarding, no rebound, no masses. No hepatomegaly or splenomegaly. MUSCULOSKELETAL: Normal range of motion at all joints. No bony deformities or tenderness. No CVA tenderness. UPPER EXTREMITIES: 2+ pulses, warm, well-perfused. No cyanosis. No clubbing. No peripheral edema. LOWER EXTREMITIES: 2+ pulses, warm, well-perfused. No calf tenderness. No peripheral edema. NEUROLOGICAL: Cranial nerves II-XII intact. Normal speech. Normal gait. PSYCHIATRIC: Cooperative. Good eye contact. Appropriate mood and affect. SKIN: Warm, dry, normal turgor, no rashes or lesions noted, normal capillary refill. ASSESSMENT/PLAN: Problem List - Problem (1) Hypertensive urgency Code(s): I16.0 - HYPERTENSIVE URGENCY (2) Hyponatremia Code(s): E87.1 - HYPO-OSMOLALITY AND HYPONATREMIA (3) Dyslipidemia Code(s): E78.5 - HYPERLIPIDEMIA, UNSPECIFIED
--- NOTE | 2017-04-27 02:27 | HP ---
Admitting History and Physical - Primary Care Physician PCP: Laura Rodriguez - Admission Chief Complaint: hypertension History of Present Illness: The pt is a 81 year old female with a significant PMH of uncontrolled HTN, HDL, hyponatremia. She presented to ED today complaining of elevated blood pressure. She measured BP at 6 PM yesterday and systolic was elevated to 200s. She took her blood pressure medications yesterday as directed. The pt reports that around the same time she started experiencing frontal headache, pressure like, associated with dizziness, weakness, blurry vision and nausea. She rechecked her BP around 9 PM and it was still elevated. That prompted her to come to the hospital. The pt denies losing consciousness, hitting her head, chest pain, SOB. She denies changing her medications. She was recently in ED in the past complaining of similar symptoms. The pt was discharged to f/u with PCP. She states that her doctor evaluated her for low sodium but everything came back normal. History Source: Patient Limitations to Obtaining History: Poor Historian - Past Medical History Cardiovascular: Yes: HTN, Hyperlipdemia - Past Surgical History Additional Past Surgical History: tooth extraction week ago - Smoking History Smoking history: Never smoked Have you smoked in the past 12 months: No - Alcohol/Substance Use Hx Alcohol Use: No - Social History Usual Living Arrangement: Yes: With Spouse Home Medications - Allergies Allergies/Adverse Reactions: Allergies Allergy/AdvReac Type Severity Reaction Status Date / Time No Known Allergies Allergy Verified 04/26/17 21:27 - Home Medications Home Medications: Ambulatory Orders Ramipril 5 mg PO DAILY 02/10/17 Amlodipine Besylate [Norvasc -] 2.5 mg PO DAILY 04/19/17 Ezetimibe 10 mg PO HS 04/19/17 Review of Systems - Review of Systems Constitutional: reports: No Symptoms. denies: Chills, Fever Eyes: reports: No Symptoms. denies: Double Vision HENT: reports: No Symptoms. denies: Difficult Swallowing Neck: reports: No Symptoms. denies: Tenderness Cardiovascular: reports: No Symptoms. denies: Chest Pain, Edema Respiratory: reports: No Symptoms. denies: Cough, Hemoptysis, SOB Gastrointestinal: reports: No Symptoms. denies: Abdominal Pain, Bloating, Constipation Genitourinary: reports: No Symptoms Musculoskeletal: reports: No Symptoms Neurological: reports: No Symptoms. denies: Confusion, Dizziness, Headache Endocrine: reports: No Symptoms. denies: Excessive Sweating, Flushing, Increased Hunger, Increased Thirst, Intolerance to Cold Physical Examination Vital Signs: Vital Signs Temperature 98.6 F 04/27/17 01:49 Pulse Rate 74 04/27/17 01:49 Respiratory Rate 16 04/27/17 01:49 Blood Pressure 148/89 04/27/17 01:49 O2 Sat by Pulse Oximetry (%) 96 04/27/17 01:49 Constitutional: Yes: Well Nourished, Calm Eyes: Yes: WNL, Conjunctiva Clear, EOM Intact, PERRL HENT: Yes: Atraumatic, Normocephalic Neck: Yes: Supple, Trachea Midline Cardiovascular: Yes: Regular Rate and Rhythm. No: S1, S2 Respiratory: Yes: Regular, CTA Bilaterally. No: Cough Gastrointestinal: Yes: Normal Bowel Sounds, Soft Extremities: Yes: WNL, Other (varicose veins in LE B/l) Edema: No Neurological: Yes: WNL, Alert, Oriented, Cran Nerves II-XII Intact. No: Unsteady Gait ...Motor Strength: WNL Psychiatric: Yes: Alert, Oriented Imaging - Results Cat Scan: Report Reviewed EKG: Report Reviewed Problem List - Problems (1) Hyponatremia Code(s): E87.1 - HYPO-OSMOLALITY AND HYPONATREMIA (2) Hypertension Code(s): I10 - ESSENTIAL (PRIMARY) HYPERTENSION Qualifiers: Hypertension type: essential hypertension Qualified Code(s): I10 - Essential (primary) hypertension; I10 - Essential (primary) hypertension; I10 - Essential (primary) hypertension Assessment/Plan This is a 81 year old female with a pmh of HTN, HDl who presented today complaining of elevated BP. She was found to have hypertensive urgency and hyponatremia 126. She was placed in observation. Hypertensive urgency: -possible due to noncompliance with medications, poorly controlled HTN, -r/o ACS, CVA, -CT done negative, EKG nl, no sixto/std, no elevated troponins -given Labetalol 10 mg IV PUSH, will give labetalol 100 mg Q12h PRN -will monitor -resume her home medications in AM: increase to Amlodypine 5 mg in AM, Ramipril 10 mg qd Hypercholesterolemia; -will continue Ezetimibe Hyponatremia; -possibly to psychogenic polydipsia -restrict fluid intake -will monitor CMP in AM DVT PPX: ambulation F/E/N: no/low Na/low Na Dispo: observation in telemetry Full note to follow Visit type - Emergency Visit Emergency Visit: Yes ED Registration Date: 04/27/17 Care time: The patient presented to the Emergency Department on the above date and was hospitalized for further evaluation of their emergent condition. - New Patient This patient is new to me today: Yes Date on this admission: 04/28/17 - Critical Care Critical Care patient: No
[2017-04-27 04:24] VITALS: BMI 22.8
--- NOTE | 2017-04-27 07:18 | PN ---
Teaching Attending Note Name of Resident: Wade Mendez ATTENDING PHYSICIAN STATEMENT I saw and evaluated the patient. I reviewed the resident's note and discussed the case with the resident. I agree with the resident's findings and plan as documented. SUBJECTIVE: Patient c/o h/a and uncontrolled BP systolic>200s. H/o Hyponatremia. Denies chest pain, palpitation, sob or peripheral edema. OBJECTIVE: Gen: Resting comfortably, NAD HEENT: NC,AT, PERRLA, EOMI, MMM Lungs: CTA CVS: RRR, S1, S2 no M/G/R Abd: Soft Nontender, BS+,no organomegaly Ext: No edema, Nl ROM Neuro: CN2-12 intact Vital Signs (72 hours) 04/26/17 04/26/17 04/26/17 21:23 23:05 23:07 Temperature 98.0 F 98.8 F Pulse Rate 75 58 L Pulse Rate [ 58 L Apical] Respiratory 18 18 Rate Blood Pressure 200/92 Blood Pressure 154/76 [Right Arm] O2 Sat by Pulse 97 97 Oximetry (%) 04/27/17 04/27/17 01:49 03:00 Temperature 98.6 F 98.6 F Pulse Rate 64 Pulse Rate [ 74 Apical] Respiratory 16 18 Rate Blood Pressure 158/71 Blood Pressure 148/89 [Right Arm] O2 Sat by Pulse 96 Oximetry (%) ASSESSMENT AND PLAN: Hypertensive urgency vs emergency- labetalol 100 mg prn q12h if sbp >180 Norvasc 5mg and ramipril 2.5mg telemetry admission ECHO DLP- Ezetimibe dvt prophylaxis Problem List - Problems (1) Hypertensive urgency Code(s): I16.0 - HYPERTENSIVE URGENCY (2) Hyponatremia Code(s): E87.1 - HYPO-OSMOLALITY AND HYPONATREMIA (3) Dyslipidemia Code(s): E78.5 - HYPERLIPIDEMIA, UNSPECIFIED
[2017-04-27 07:35] LABS: BASOPHIL 2.2 % (0-2.0); EOSINOPHIL 2.1 % (0-4.5); MCH 29.8 pg (25.7-33.7); MCHC 33.6 g/dl (32.0-36.0); MEAN CELL VOLUME 88.7 fl (80-96); MEAN PLT VOLUME 7.8 fl (7.5-11.1); NEUTROPHILS 44.4 % (42.8-82.8); PLATELET COUNT 320 K/MM3 (134-434); RDW 12.3 % (11.6-15.6); WHITE BLOOD COUNT 5.5 K/mm3 (4.0-10.0)
[2017-04-27] MEDS ORDERED: LABETALOL HCL 100 MG TABLET (FP) PO PRN (07:54)
[2017-04-27] MEDS ORDERED: ACETAMINOPHEN 325 MG TABLET (FP) PO PRN (07:58)
[2017-04-27 08:02] LABS: ALBUMIN 3.4 g/dl (3.4-5.0); ALK PHOS 67 U/L (45-117); ANION GAP 10 (8-16); BILIRUBIN,TOTAL 0.4 mg/dL (0.2-1.0); CALCIUM 9.1 mg/dL (8.5-10.1); CO2 25 mmol/L (21-32); CREATININE 0.6 mg/dL (0.55-1.02); GLUCOSE,RANDOM 86 mg/dL (74-106); MAGNESIUM 2.6 mg/dL (1.8-2.4); PHOSPHOROUS 3.7 mg/dL (2.5-4.9); SGOT/AST 23 U/L (15-37); SGPT/ALT 24 U/L (12-78); TOT PROT 6.7 g/dl (6.4-8.2)
[2017-04-27] MEDS: amLODIPine BESYLATE 5 MG TABLET (FP) PO SCH (09:24)
[2017-04-27] MEDS: RAMIPRIL 5 MG CAPSULE (FP) PO SCH (09:24)
[2017-04-27] MEDS ORDERED: amLODIPine BESYLATE 2.5 MG TABLET (FP) PO SCH (10:00)
--- NOTE | 2017-04-27 11:29 | HOSP ---
Subjective - Review of Symptoms Subjective: PT seen and examined. She states her VARGAS is gone, no visual disturbances, she takes her medication regularly and when she was put on ramipril and amlodipine initially her BP stabilized to the 120's. She is recently s/p complicated tooth extraction to which she has one more day of amoxicillin left. Physical Examination Vital Signs: Vital Signs Temperature 98.2 F 04/27/17 08:39 Pulse Rate 59 L 04/27/17 11:03 Respiratory Rate 16 04/27/17 08:39 Blood Pressure 114/58 04/27/17 11:03 O2 Sat by Pulse Oximetry (%) 96 04/27/17 01:49 Constitutional: Yes: No Distress Eyes: Yes: Conjunctiva Clear Neck: Yes: Supple Cardiovascular: Yes: Regular Rate and Rhythm, S1, S2 Respiratory: Yes: Regular, CTA Bilaterally Gastrointestinal: Yes: Normal Bowel Sounds, Soft Edema: No Neurological: Yes: Alert, Oriented, Cran Nerves II-XII Intact Labs: CBC, BMP 04/27/17 06:00 04/27/17 06:00 Hospitalist Encounter Assessment: Assessment: 81 year old female with PMHx HTN, HLD admitted with hypertensive urgency. Plan: 1. Hypertensive urgency - This is fourth admission for elevated BP, pt does endorse she is medication compliant - BP stable now - Increased amlodipine 5mg - Ramipril 5mg - ECHO ordered eval LV function 2. Hyponatremia - Resolving 3. 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 s/p tooth extraction - Continue amoxicillin 500mg q8 x1 day 5. HLD - Continue ezetemibe 10mg HS 6. PPX - Heparin sq
[2017-04-27 12:34] LABS: URINE LEUK ESTERASE Negative (NEGATIVE)
[2017-04-27] MEDS: HEPARIN NA (PORCINE) 5,000 UNITS/ML 1ML VIAL SQ SCH ×2 (13:52→22:17)
[2017-04-27] MEDS: AMOXICILLIN 500 MG CAPSULE (FP) PO SCH ×2 (13:52→22:17)
--- NOTE | 2017-04-27 19:00 | EKG ---
Test Reason : Blood Pressure : / mmHG Vent. Rate : 055 BPM Atrial Rate : 055 BPM P-R Int : 156 ms QRS Dur : 084 ms QT Int : 440 ms P-R-T Axes : 057 -23 035 degrees QTc Int : 420 ms SINUS BRADYCARDIA INCOMPLETE RBBB LEFT ANTERIOR FASCICULAR BLOCK WHEN COMPARED WITH ECG OF 10-FEB-2017 14:24, APPEARANCE OF LEFT ANTERIOR FASCICULAR BLOCK REPEAT EKG IF CLINICALLY INDICATED Confirmed by JULIANE ARMSTRONG MD ([id number]) on 04/27/2017 6:59:43 PM Referred By: Confirmed By:JULIANE ARMSTRONG MD
[2017-04-27] MEDS ORDERED: PT OWN MED DRAWER 7, Y5N ONE (21:20)
[2017-04-27] MEDS ORDERED: ZOLPIDEM TARTRATE 5 MG TABLET PO PRN (21:34)
[2017-04-27] MEDS ORDERED: ZOLPIDEM TARTRATE 5 MG TABLET PO ONE (22:15)
[2017-04-27] MEDS: EZETIMIBE 10 MG TABLET (FP) PO SCH (22:17)
[2017-04-28] MEDS: HEPARIN NA (PORCINE) 5,000 UNITS/ML 1ML VIAL SQ SCH ×3 (06:19→21:27)
[2017-04-28] MEDS: AMOXICILLIN 500 MG CAPSULE (FP) PO SCH (06:19)
[2017-04-28 07:08] LABS: ANION GAP 10 (8-16); CO2 25 mmol/L (21-32); CREATININE 0.8 mg/dL (0.55-1.02); GLUCOSE,RANDOM 85 mg/dL (74-106)
[2017-04-28] MEDS: RAMIPRIL 5 MG CAPSULE (FP) PO SCH (09:13)
[2017-04-28] MEDS: amLODIPine BESYLATE 5 MG TABLET (FP) PO SCH (09:13)
--- NOTE | 2017-04-28 15:19 | PN ---
Physical Exam: SUBJECTIVE: Patient seen and examined. No acute complaints, stated her burn blister open itself last night. OBJECTIVE: Vital Signs Period Temp Pulse Resp BP Sys/Neff Pulse Ox Last 24 Hr 97 F-98.9 F 51-92 16-20 109-142/53-74 94-98 PE Neuro: alert, awake, cn 2-12intact Pulm: CTAB CV: s1 s2 rrr no mrg Abd: s nt nd + bs Skin: R upper thigh burn, clean Laboratory Results - last 24 hr 04/27/17 04/28/17 18:00 06:00 Sodium 133 L Potassium 4.6 Chloride 98 Carbon Dioxide 25 Anion Gap 10 BUN 10 D Creatinine 0.8 D Random Glucose 85 Calcium 9.0 Ur Random Sodium 24 Ur Random Potassium 26.2 Ur Random Chloride 13 Active Medications Generic Name Dose Route Start Last Admin Trade Name Freq PRN Reason Stop Dose Admin Acetaminophen 325 mg 04/27/17 07:58 Tylenol - PO Q6H PRN FEVER OR PAIN Amlodipine Besylate 5 mg 04/27/17 10:00 04/28/17 09:13 Norvasc - PO 5 mg DAILY VIKTOR Administration Ezetimibe 10 mg 04/27/17 22:00 04/27/17 22:17 Zetia - PO 10 mg HS VIKTOR Administration Heparin Sodium (Porcine) 5,000 unit 04/27/17 14:00 04/28/17 15:07 Heparin - SQ 5,000 unit TID VIKTOR Administration Labetalol HCl 100 mg 04/27/17 07:54 Normodyne - PO Q12H PRN HYPERTENSION Ramipril 5 mg 04/27/17 10:00 04/28/17 09:13 Altace - PO 5 mg DAILY VIKTOR Administration Assessment: 81 year old female with PMHx HTN, HLD admitted with hypertensive urgency. Plan: 1. Hypertensive urgency - Resolved, bp stable - Increased amlodipine 5mg - Ramipril 5mg - ECHO ordered eval LV function 2. Hyponatremia - Improved 3. 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 s/p tooth extraction - Completed amoxicillin course 5. HLD - Continue ezetemibe 10mg HS 6. PPX - Heparin sq Visit type - Emergency Visit Emergency Visit: Yes ED Registration Date: 04/27/17 Care time: The patient presented to the Emergency Department on the above date and was hospitalized for further evaluation of their emergent condition. - New Patient This patient is new to me today: No - Critical Care Critical Care patient: No
[2017-04-28] MEDS: EZETIMIBE 10 MG TABLET (FP) PO SCH (21:21)
[2017-04-28] MEDS ORDERED: ZOLPIDEM TARTRATE 5 MG TABLET PO ONE (22:00)
[2017-04-28] MEDS ORDERED: SENNOSIDES 8.6MG TABLET (FP) PO SCH (22:00)
[2017-04-29] MEDS: HEPARIN NA (PORCINE) 5,000 UNITS/ML 1ML VIAL SQ SCH ×2 (06:21→14:27)
[2017-04-29 08:45] LABS: ANION GAP 8 (8-16); CALCIUM 9.1 mg/dL (8.5-10.1); CO2 25 mmol/L (21-32); CREATININE 0.8 mg/dL (0.55-1.02); GLUCOSE,RANDOM 85 mg/dL (74-106)
[2017-04-29] MEDS: RAMIPRIL 5 MG CAPSULE (FP) PO SCH (09:14)
[2017-04-29] MEDS: amLODIPine BESYLATE 5 MG TABLET (FP) PO SCH (09:16)
--- NOTE | 2017-04-29 14:01 | DS ---
Physical Exam: SUBJECTIVE: Patient seen and examined OBJECTIVE: Vital Signs Period Temp Pulse Resp BP Sys/Neff Pulse Ox Last 24 Hr 97.1 F-98.6 F 55-60 18-20 112-184/59-93 97-97 PHYSICAL EXAM GENERAL: The patient is awake, alert, and fully oriented, in no acute distress. HEAD: Normal with no signs of trauma. EYES: PERRL, extraocular movements intact, sclera anicteric, conjunctiva clear. ENT: Ears normal, nares patent, oropharynx clear without exudates, moist mucous membranes. NECK: Trachea midline, full range of motion, supple. LUNGS: Breath sounds equal, clear to auscultation bilaterally, no wheezes, no crackles, no accessory muscle use. HEART: Regular rate and rhythm, S1, S2 without murmur, rub or gallop. ABDOMEN: Soft, nontender, nondistended, normoactive bowel sounds, no guarding, no rebound, no hepatosplenomegaly, no masses. EXTREMITIES: 2+ pulses, warm, well-perfused, no edema. NEUROLOGICAL: Cranial nerves II through XII grossly intact. Normal speech, gait not observed. PSYCH: Normal mood, normal affect. SKIN: Warm, dry, normal turgor, no rashes or lesions noted. LABS Laboratory Results - last 24 hr 04/29/17 06:50 Sodium 132 L Potassium 4.6 Chloride 99 Carbon Dioxide 25 Anion Gap 8 BUN 12 Creatinine 0.8 Random Glucose 85 Calcium 9.1 HOSPITAL COURSE: Date of Admission:04/27/17 Date of Discharge: 04/29/17 Discharge Summary Reason For Visit: HYPONATREMIA Current Active Problems Dyslipidemia (Acute) Hypertensive urgency (Acute) Hyponatremia (Acute) Hospital Course: Ramipril 5mg bid at home. Increased Norvasc to 5mg po daily Condition: Stable - Instructions Diet, Activity, Other Instructions: Please return to the ED with new, persistent, or worsening symptoms. Please follow-up with providers as indicated. Please follow-up with your primary care provider: Dr. Laura Bergeron tomorrow as scheduled. Take your blood pressure at home as discussed 3 times daily and write down all your readings and bring it to your primary care provider's office. Referrals: Petr Nicholas MD [Staff Physician] - (Please follow-up with a poultry vaccinator for further management of your high blood pressure in 2-3 days) - Home Medications Comprehensive Discharge Medication List: Ambulatory Orders Ramipril 5 mg PO BID 02/10/17 Ezetimibe 10 mg PO HS 04/19/17 Acetaminophen [Tylenol .Regular Strength -] 325 mg PO Q6H PRN #0 tablet Amlodipine Besylate [Norvasc -] 5 mg PO DAILY #30 tablet 04/29/17 Sennosides [Senna -] 2 tab PO HS PRN #60 tablet 04/29/17
[2017-04-29 14:41] VITALS: BP 143/82; PULSE 69; TEMP 96.9
== END 2017-04-29 14:47 | disposition home or self-care (01) ==
LOC: JER 21:20 → JERBED 04-27 01:06 → J5S 04-27 03:27
PROVIDERS: ADMIT Internal Medicine; ATTEND Registered Nurse
PROC: 3E033GC Introduction of Other Therapeutic Substance into Peripheral Vein, Percutaneous Approach (ICD-10-PCS; principal; 2017-04-27)
DX: E87.1 Hypo-osmolality and hyponatremia (principal); E78.5 Hyperlipidemia, unspecified; I16.0 Hypertensive urgency; R51 Headache; Z98.818 Other dental procedure status
CPT/HCPCS: 36415; 70450-TC; 71010-TC; 80048; 80053; 80061; 81003; 82436; 83721; 83735; 84100; 84133; 84300; 84484; 85025; 85610; 93005; 93010; 93306-TC; 96374; 99282-25; G0378; J1644

== ENCOUNTER 2019-02-11 16:14 | Emergency (ER) | payer OTHER, MEDICARE ==
--- NOTE | 2019-02-11 16:23 | PDOC ---
Rapid Medical Evaluation Time Seen by Provider: 02/11/19 16:21 Medical Evaluation: Allergies Allergy/AdvReac Type Severity Reaction Status Date / Time No Known Allergies Allergy Verified 04/26/17 21:27 02/11/19 16:22 This patient had a brief in-person evaluation in triage CC:+ redness and swelling of left forearm after being bitten by a bee yesterday Also reports elevated blood pressure today. STates took HTN medication as prescribed PE: NAD unlabored breathing left arm with swelling and redness, warm to touch orders: none This patient will proceed to the ED for further evaluation Discharge Disposition - Diagnosis Left arm swelling - Referrals - Patient Instructions - Post Discharge Activity
[2019-02-11 16:24] VITALS: TEMP 98.8; BMI 21.9
--- NOTE | 2019-02-11 19:02 | PDOC ---
*Physical Exam - Vital Signs Last Vital Signs Temp Pulse Resp BP Pulse Ox 98.8 F 75 19 146/81 97 02/11/19 16:22 02/11/19 16:22 02/11/19 16:22 02/11/19 16:22 02/11/19 16:22 Medical Decision Making - Medical Decision Making 02/11/19 19:09 Patient seen and evaluated with Dr. Peña (PGY-2) 02/11/19 19:23 83 year old female with a PMH of HTN, HLD presents c/o elevated BP at home (SBP 185) this morning as well as left UE swelling s/p bee sting. Normotensive @ presentation; L lower forearm with erythema, mild edema, no warmth, no tenderness. As per EMR, last evaluation in our ED in 2017 for elevated BP at which time patient was found to be hyponatremic. ASx for SiSx of HTN urgency/emergency but did have h/o dizziness and VARGAS this morning Will obtain basic labs, Benadryl PO for symptomatic care. Reassess. *DC/Admit/Observation/Transfer Diagnosis at time of Disposition: Left arm swelling - Referrals - Patient Instructions - Post Discharge Activity
[2019-02-11] MEDS ORDERED: diphenhydrAMINE HCL 50 MG CAPSULE PO ONE (19:20)
--- NOTE | 2019-02-11 19:23 | PDOC ---
History of Present Illness <Tabitha Rainey - Last Filed: 02/11/19 22:57> <Margie Peña - Last Filed: 02/12/19 00:30> - General Chief Complaint: Blood Pressure Problem Stated Complaint: HIGH BLOOD PRESURE/BEE STING Time Seen by Provider: 02/11/19 16:21 Past History <Tabitha Rainey - Last Filed: 02/11/19 22:57> - Past Medical History COPD: No HTN: Yes Hypercholesterolemia: Yes - Immunization History Immunization Up to Date: Yes - Suicide/Smoking/Psychosocial Hx Smoking History: Never smoked Have you smoked in the past 12 months: No Information on smoking cessation initiated: No Hx Alcohol Use: No Drug/Substance Use Hx: No Substance Use Type: None <Margie Peña - Last Filed: 02/12/19 00:30> - Past Medical History Allergies/Adverse Reactions: Allergies Allergy/AdvReac Type Severity Reaction Status Date / Time No Known Allergies Allergy Verified 02/11/19 16:24 Home Medications: Ambulatory Orders Ramipril 5 mg PO BID 02/10/17 Ezetimibe 10 mg PO HS 04/19/17 Acetaminophen [Tylenol .Regular Strength -] 325 mg PO Q6H PRN #0 tablet Amlodipine Besylate [Norvasc -] 5 mg PO DAILY #30 tablet 04/29/17 Sennosides [Senna -] 2 tab PO HS PRN #60 tablet 04/29/17 Diphenhydramine [Benadryl Oral Solution -] 12.5 mg PO Q6H PRN #140 ml 02/11/19 Metoprolol Succinate 5 mg PO DAILY 02/11/19 *Physical Exam - Vital Signs Last Vital Signs Temp Pulse Resp BP Pulse Ox 98.8 F 78 18 150/80 98 02/11/19 16:22 02/11/19 19:30 02/11/19 19:30 02/11/19 19:30 02/11/19 19:30 <Tabitha Rainey - Last Filed: 02/11/19 22:57> - Vital Signs Last Vital Signs Temp Pulse Resp BP Pulse Ox 98.8 F 75 19 146/81 97 02/11/19 16:22 02/11/19 16:22 02/11/19 16:22 02/11/19 16:22 02/11/19 16:22 <Margie Peña - Last Filed: 02/12/19 00:30> ED Treatment Course - LABORATORY CBC & Chemistry Diagram: 02/11/19 19:42 02/11/19 19:42 - ADDITIONAL ORDERS Additional order review: Laboratory Results 02/11/19 19:42 Sodium 130 L Potassium 4.5 Chloride 96 L Carbon Dioxide 27 Anion Gap 7 L BUN 15.3 Creatinine 1.0 Est GFR (CKD-EPI)AfAm 59.91 Est GFR (CKD-EPI)NonAf 51.69 Random Glucose 104 Calcium 9.3 Total Bilirubin 0.3 AST 23 ALT 24 Alkaline Phosphatase 77 Creatine Kinase 146 Troponin I < 0.02 Total Protein 7.4 Albumin 4.1 02/11/19 19:42 RBC 4.63 MCV 88.6 MCHC 34.4 RDW 13.2 MPV 8.6 D Neutrophils % 65.4 D Lymphocytes % 25.0 D Monocytes % 6.8 Eosinophils % 1.5 Basophils % 1.3 - RADIOLOGY Radiology Studies Ordered: Category Date Time Status HEAD CT WITHOUT CONTRAST [CT] Stat CT Scan 02/11/19 21:37 Completed - Medications Given in the ED: ED Medications Discontinued Medications Generic Name Dose Route Start Last Admin Trade Name Freq PRN Reason Stop Dose Admin Diphenhydramine HCl 12.5 mg 02/11/19 19:20 02/11/19 20:11 Benadryl - PO 02/11/19 19:21 12.5 mg ONCE ONE Administration <Tabitha Rainey - Last Filed: 02/11/19 22:57> - LABORATORY CBC & Chemistry Diagram: 02/11/19 19:42 02/11/19 19:42 - RADIOLOGY Radiology Studies Ordered: Category Date Time Status CHEST PA & LAT [RAD] Stat Radiology 02/11/19 19:20 Ordered <Margie Peña - Last Filed: 02/12/19 00:30> Medical Decision Making - Medical Decision Making HPI: 83yo F with PMH of HTN presenting with LUE swelling/redness secondary to bee sting and high blood pressure reading at home. Patient states she was stung by a bee yesterday. She was gardening when she saw and felt the bee sting her left forearm. Patient removed the stinger at home. Since that time she has had redness, itchiness, and swelling in the left forearm. She has placed an ice pack in the area which provides some relief of her pain. However, her discomfort has been such that she was unable to sleep well last night. She felt weak and dizzy this morning and around 2pm checked her blood pressure on her left arm. The reading was 185 systolic and was the same when she repeated it on the same limb two more times. Patient felt immense anxiety from this reading and called EMS to come to the hospital. She took her home dose of 2.5mg amlodipine. Not currently endorsing any weakness or dizziness. Denies fevers, chills, chest pain, shortness of breath, abdominal pain, headache, or vision changes. PCP: Dr. Chiang ROS: Constitutional: no fever, no chills HEENT: no throat pain, no dysphagia Cardiovascular: no chest pain, no palpitations Respiratory: no cough, no shortness of breath Gastrointestinal: no abdominal pain, no nausea Genitourinary: no dysuria, no frequency Musculoskeletal: no myalgia, no arthralgia Skin: +arm swelling, +itching Neurologic: +dizziness +weakness PE: General: Awake, alert, and fully oriented, in no acute distress Head: No signs of trauma Eyes: EOMI, sclera anicteric ENT: Moist mucus membranes Neck: Normal ROM, supple Lungs: Lungs clear, Normal breath sounds Cardio: Regular rhythm, S1 and S2 present Abdomen: Soft, nontender. No guarding, no rebound, no masses Extremities: Normal range of motion, Distal pulses present, No BLE edema L. arm with edema and erythema from the wrist to the elbow SKIN: Warm, Dry, normal turgor Neurologic: Cranial nerves II through XII grossly intact. Normal speech ED Courses/MDM: DDX including but not limited to hypertensive urgency vs emergency, ACS, syncope DDX including but not limited to hypersensitivity reaction, anaphylaxis, cellulitis, abscess 12.5mg diphenhydramine po 02/11/19 19:21 CBC WBC 9.0 K/mm3 (4.0-10.0) 02/11/19 19:42 RBC 4.63 M/mm3 (3.60-5.2) 02/11/19 19:42 Hgb 14.1 GM/dL (10.7-15.3) 02/11/19 19:42 Hct 41.0 % (32.4-45.2) 02/11/19 19:42 MCV 88.6 fl (80-96) 02/11/19 19:42 MCH 30.5 pg (25.7-33.7) 02/11/19 19:42 MCHC 34.4 g/dl (32.0-36.0) 02/11/19 19:42 RDW 13.2 % (11.6-15.6) 02/11/19 19:42 Plt Count 274 K/MM3 (134-434) 02/11/19 19:42 MPV 8.6 fl (7.5-11.1) D 02/11/19 19:42 Absolute Neuts (auto) 5.9 K/mm3 (1.5-8.0) 02/11/19 19:42 Neutrophils % 65.4 % (42.8-82.8) D 02/11/19 19:42 Lymphocytes % 25.0 % (8-40) D 02/11/19 19:42 Monocytes % 6.8 % (3.8-10.2) 02/11/19 19:42 Eosinophils % 1.5 % (0-4.5) 02/11/19 19:42 Basophils % 1.3 % (0-2.0) 02/11/19 19:42 Nucleated RBC % 0 % (0-0) 02/11/19 19:42 No anemia or leukocytosis CMP Sodium 130 mmol/L (136-145) L 02/11/19 19:42 Potassium 4.5 mmol/L (3.5-5.1) 02/11/19 19:42 Chloride 96 mmol/L (98-107) L 02/11/19 19:42 Carbon Dioxide 27 mmol/L (21-32) 02/11/19 19:42 Anion Gap 7 MMOL/L (8-16) L 02/11/19 19:42 BUN 15.3 mg/dL (7-18) 02/11/19 19:42 Creatinine 1.0 mg/dL (0.55-1.3) 02/11/19 19:42 Est GFR (CKD-EPI)AfAm 59.91 02/11/19 19:42 Est GFR (CKD-EPI)NonAf 51.69 02/11/19 19:42 Random Glucose 104 mg/dL (74-106) 02/11/19 19:42 Calcium 9.3 mg/dL (8.5-10.1) 02/11/19 19:42 Total Bilirubin 0.3 mg/dL (0.2-1) 02/11/19 19:42 AST 23 U/L (15-37) 02/11/19 19:42 ALT 24 U/L (13-61) 02/11/19 19:42 Alkaline Phosphatase 77 U/L (45-117) 02/11/19 19:42 Troponin I < 0.02 ng/ml (0.00-0.05) 02/11/19 19:42 Total Protein 7.4 g/dl (6.4-8.2) 02/11/19 19:42 Albumin 4.1 g/dl (3.4-5.0) 02/11/19 19:42 Low sodium, consistent with patient's baseline Normal Cr Tpn undetectable EKG: rate 61, QTc 424, NSR with PVCs CXR without acute pathology, my impression Patient states her left arm itching/swelling has improved No signs of end-organ damage 02/11/19 21:21 As patient's history may be consistent with pre-syncope, decision made to order CT Head. Benefits and risks discussed, patient decided to leave A, citing that she did not want to wait for the results, and [facility] paperwork was prepared. Before signing, patient changed her mind and was amenable to receiving the Head CT. 02/11/19 21:[address] Patient signed out to Dr. Bernard and night team. <Margie Peña - Last Filed: 02/12/19 00:30> *DC/Admit/Observation/Transfer <Tabitha Rainey - Last Filed: 02/11/19 22:57> <Margie Peña - Last Filed: 02/12/19 00:30> Diagnosis at time of Disposition: Left arm swelling, Hyponatremia High blood pressure Qualifiers: Hypertension type: unspecified Qualified Code(s): I10 - Essential (primary) hypertension - Discharge Dispostion Disposition: AGAINST MEDICAL ADVICE Condition at time of disposition: Guarded - Prescriptions Prescriptions: Diphenhydramine [Benadryl Oral Solution -] 12.5 mg PO Q6H PRN #140 ml PRN Reason: itching - Referrals Referrals: Laura Chiang MD [Non Staff, Medical] - - Patient Instructions Printed Discharge Instructions: DI for High Blood Pressure, DI for Insect Bites and Stings, DI for Hyponatremia Additional Instructions: You came to the ED for a high blood pressure and arm pain. Labs, an EKG and a cat scan of your head did not indicate acute pathology. Your sodium level was noted to be low. Follow up with your primary care doctor regarding this. You can take [id number] benadryl for your arm itchiness and discomfort. Follow the instructions on the medication bottle. Follow-up with your primary care provider this week to discuss this ED visit and to further evaluate your symptoms. Call tomorrow morning and make an appointment. Your workup is not complete until you do so. Immediate medical attention is required if you experience: severe headache, have a seizure, have focal numbness or weakness, chest pain, shortness of breath , or any new or concerning symptoms. If you think you are having an emergency, call for emergency medical services or present to the emergency department right away.
[2019-02-11] MEDS ORDERED: diphenhydrAMINE HCL 25 MG CAPSULE (FP) PO ONE (19:50)
[2019-02-11 19:57] LABS: BASO % 1.3 % (0-2.0); EOS % 1.5 % (0-4.5); HEMOGLOBIN 14.1 GM/dL (10.7-15.3); MCH 30.5 pg (25.7-33.7); MCHC 34.4 g/dl (32.0-36.0); MEAN CELL VOLUME 88.6 fl (80-96); MEAN PLT VOLUME 8.6 fl (7.5-11.1); MONO % 6.8 % (3.8-10.2); NEUT % 65.4 % (42.8-82.8); PLATELET COUNT 274 K/MM3 (134-434); RBC 4.63 M/mm3 (3.60-5.2); RDW 13.2 % (11.6-15.6)
[2019-02-11 20:23] LABS: ALBUMIN 4.1 g/dl (3.4-5.0); ALK PHOS 77 U/L (45-117); ANION GAP 7 MMOL/L (8-16); BILIRUBIN,TOTAL 0.3 mg/dL (0.2-1); BLOOD UREA NITROGEN 15.3 mg/dL (7-18); CALCIUM 9.3 mg/dL (8.5-10.1); CHLORIDE 96 mmol/L (98-107); CO2 27 mmol/L (21-32); GLUCOSE,RANDOM 104 mg/dL (74-106); POTASSIUM 4.5 mmol/L (3.5-5.1); SGOT/AST 23 U/L (15-37); SGPT/ALT 24 U/L (13-61); SODIUM 130 mmol/L (136-145); TOT PROT 7.4 g/dl (6.4-8.2)
[2019-02-11 21:07] VITALS: BP 150/80; PULSE 78
--- NOTE | 2019-02-11 21:50 | PDOC ---
Documentation entered by Abigail Orta SCRIBE, acting as scribe for Teresa Pate DO. Teresa Pate DO: This documentation has been prepared by the yobani, Abigail Orta SCRIBE, under my direction and personally reviewed by me in its entirety. I confirm that the documentation accurately reflects all work , treatment, procedures, and medical decision making performed by me. Attending Attestation - Resident Resident Name: Gifty PeñaMargie - ED Attending Attestation I have performed the following: I have examined & evaluated the patient, The case was reviewed & discussed with the resident, I agree w/resident's findings & plan, Exceptions are as noted - HPI HPI: 02/11/19 20:43 The patient is an 83-year-old female, with a past medical history of HTN and HLD , who presents to the ED with elevated blood pressure. Patient took her BP at home and noted it to be high at 185. She took 2.5 mg of amlodipine. She also reports experiencing LT forearm swelling after being stung by a bee yesterday and was able to remove the stinger. Patient reports that she woke up this morning and feeling weak and dizzy as if she was going to pass out. She denies any loss of consciousness. The patient denies any fevers, chills, nausea, vomiting, diarrhea, or abdominal pain. Denies any chest pain, palpitations, or shortness of breath. Denies any urinary symptoms. Denies any headache, vision changes, or lightheadedness. Allergies: NKA - Physicial Exam PE: 02/11/19 20:43 Agree with resident exam. - Medical Decision Making 02/11/19 21:48 83-year-old female with an episode of hypotension which caused her to feel lightheaded and anxious, now resolved Patient also has a bee sting to the left upper arm EKG shows no significant abnormalities Due to patient's age and hypertension plan for troponin, CT scan of the brain and likely DC home with outpatient primary care follow-up
--- NOTE | 2019-02-11 22:24 | PDOC ---
*Physical Exam - Vital Signs Last Vital Signs Temp Pulse Resp BP Pulse Ox 98.8 F 78 18 150/80 98 02/11/19 16:22 02/11/19 19:30 02/11/19 19:30 02/11/19 19:30 02/11/19 19:30 ED Treatment Course - LABORATORY CBC & Chemistry Diagram: 02/11/19 19:42 02/11/19 19:42 - ADDITIONAL ORDERS Additional order review: Laboratory Results 02/11/19 19:42 Sodium 130 L Potassium 4.5 Chloride 96 L Carbon Dioxide 27 Anion Gap 7 L BUN 15.3 Creatinine 1.0 Est GFR (CKD-EPI)AfAm 59.91 Est GFR (CKD-EPI)NonAf 51.69 Random Glucose 104 Calcium 9.3 Total Bilirubin 0.3 AST 23 ALT 24 Alkaline Phosphatase 77 Creatine Kinase 146 Troponin I < 0.02 Total Protein 7.4 Albumin 4.1 02/11/19 19:42 RBC 4.63 MCV 88.6 MCHC 34.4 RDW 13.2 MPV 8.6 D Neutrophils % 65.4 D Lymphocytes % 25.0 D Monocytes % 6.8 Eosinophils % 1.5 Basophils % 1.3 - Medications Given in the ED: ED Medications Discontinued Medications Generic Name Dose Route Start Last Admin Trade Name Freq PRN Reason Stop Dose Admin Diphenhydramine HCl 12.5 mg 02/11/19 19:20 02/11/19 20:11 Benadryl - PO 02/11/19 19:21 12.5 mg ONCE ONE Administration Medical Decision Making - Medical Decision Making 02/11/19 22:22 S/O hx htn BP 185 systolic at home also has bee sting to left forarm weak and dizzy, felt like she may pass out, called EMS for aevaluation Took ammlodipine and diphenhydromine for swelling pending CT head, if normal send home *DC/Admit/Observation/Transfer Diagnosis at time of Disposition: Left arm swelling, Hyponatremia High blood pressure Qualifiers: Hypertension type: unspecified Qualified Code(s): I10 - Essential (primary) hypertension - Discharge Dispostion Disposition: AGAINST MEDICAL ADVICE Condition at time of disposition: Guarded - Prescriptions Prescriptions: Diphenhydramine [Benadryl Oral Solution -] 12.5 mg PO Q6H PRN #140 ml PRN Reason: itching - Referrals Referrals: Laura Chiang MD [Non Staff, Medical] - - Patient Instructions Printed Discharge Instructions: DI for High Blood Pressure, DI for Insect Bites and Stings, DI for Hyponatremia Additional Instructions: You came to the ED for a high blood pressure and arm pain. Labs and EKG did not indicate acute pathology. Your sodium level was noted to be low. Follow up with your primary care doctor regarding this. We recommended a CT of your head but you decided to leave against medical advice. As discussed you may have undiagnosed illness or medical diagnosis that if left untreated can lead to multiple complications including, but not limited to permanent disability and . Should you reconsider you should turn to the emergency department for evaluation. You can take [id number] benadryl for your arm itchiness and discomfort. Follow the instructions on the medication bottle. Follow-up with your primary care provider this week to discuss this ED visit and to further evaluate your symptoms. Call tomorrow morning and make an appointment. Your workup is not complete until you do so. Immediate medical attention is required if you experience: severe headache, have a seizure, have focal numbness or weakness, chest pain, shortness of breath , or any new or concerning symptoms. If you think you are having an emergency, call for emergency medical services or present to the emergency department right away. - Post Discharge Activity
--- NOTE | 2019-02-12 14:38 | EKG ---
Test Reason : Blood Pressure : / mmHG Vent. Rate : 061 BPM Atrial Rate : 061 BPM P-R Int : 146 ms QRS Dur : 074 ms QT Int : 422 ms P-R-T Axes : 046 004 054 degrees QTc Int : 424 ms POOR DATA QUALITY, INTERPRETATION MAY BE ADVERSELY AFFECTED SINUS RHYTHM WITH PREMATURE SUPRAVENTRICULAR COMPLEXES NONSPECIFIC ST ABNORMALITY ABNORMAL ECG WHEN COMPARED WITH ECG OF 26-APR-2017 22:57, PREMATURE SUPRAVENTRICULAR COMPLEXES ARE NOW PRESENT Confirmed by LORENE COON MD ([id number]) on 02/12/2019 2:37:54 PM Referred By: Confirmed By:LORENE COON MD
== END 2019-02-11 23:18 | disposition left against medical advice (07) ==
LOC: JER 16:14
DX: M79.89 Other specified soft tissue disorders (principal); I10 Essential (primary) hypertension; E87.1 Hypo-osmolality and hyponatremia; E78.00 Pure hypercholesterolemia, unspecified
CPT/HCPCS: 36415; 70450-TC; 71046-TC-FY; 80053; 82550; 84484; 85025; 93005; 93010; 99283-25